=== PATIENT | male | born 1960 | race African-American/Black ===

== ENCOUNTER 2018-02-04 07:36 | Outpatient (CLI) | payer OTHER | END 2018-02-04 07:37 | disposition home or self-care (01) | LOC: BICMRI 07:36 | PROVIDERS: ATTEND Family Medicine | DX: M23.303 Other meniscus derangements, unspecified medial meniscus, right knee (principal); M23.241 Derangement of anterior horn of lateral meniscus due to old tear or injury, right knee; M25.461 Effusion, right knee; M24.661 Ankylosis, right knee ==

== ENCOUNTER 2020-10-03 07:52 | Outpatient (CLI) | payer OTHER ==
--- NOTE | 2020-10-03 08:07 | RAD ---
EXAM: CHEST TWO VIEWS 10/03/2020 8:05 AM HISTORY: Dyspnea COMPARISON: None. FINDINGS: Lungs: No acute airspace consolidation. Heart: Normal in size and contour. Pulmonary Vessels: Normal. Costophrenic Angles: Clear. Pneumothorax: None. Osseous Structures: Intact. Additional Findings: None. IMPRESSION: No significant acute intrathoracic disease.
== END 2020-10-03 07:53 | disposition home or self-care (01) ==
LOC: BICRAD 07:52
PROVIDERS: ATTEND Internal Medicine Critical Care Medicine
DX: R06.00 Dyspnea, unspecified (principal)
CPT/HCPCS: 71046

== ENCOUNTER 2021-03-27 18:00 | Outpatient (CLI) | payer BC | END 2021-03-27 18:01 | disposition home or self-care (01) | LOC: SLEEPLAB 18:00 | PROVIDERS: ATTEND Family Medicine | DX: G47.33 Obstructive sleep apnea (adult) (pediatric) (principal); R06.83 Snoring; E11.9 Type 2 diabetes mellitus without complications; G47.00 Insomnia, unspecified; E66.9 Obesity, unspecified; Z68.41 Body mass index [BMI] 40.0-44.9, adult | CPT/HCPCS: 95806 ==

== ENCOUNTER 2023-11-23 08:23 | Outpatient (CLI) | payer BC | END 2023-11-23 08:24 | disposition home or self-care (01) | LOC: BICRAD 08:23 | PROVIDERS: ATTEND Internal Medicine Rheumatology | DX: D86.0 Sarcoidosis of lung (principal); R06.02 Shortness of breath | CPT/HCPCS: 71046 ==

== ENCOUNTER 2024-09-04 07:56 | Outpatient (CLI) | payer BC | END 2024-09-04 07:57 | disposition home or self-care (01) | LOC: BICRAD 07:56 | PROVIDERS: ATTEND Internal Medicine Rheumatology | DX: M25.541 Pain in joints of right hand (principal); M25.542 Pain in joints of left hand; D86.9 Sarcoidosis, unspecified; M25.861 Other specified joint disorders, right knee ==

== ENCOUNTER 2025-08-31 08:04 | Day surgery (SDC) | payer BC ==
[2025-08-27 13:46] VITALS: BMI 39.4
[2025-08-31] MEDS ORDERED: CEFAZOLIN 2 GM VIAL ONE (09:05)
[2025-08-31] MEDS ORDERED: fentaNYL PF 100 MCG/2 ML SYRINGE ONE (11:42)
[2025-08-31] MEDS ORDERED: PROPOFOL 200 MG/20 ML VIAL ONE (11:44)
[2025-08-31] MEDS ORDERED: Ketorolac Tromethamine 30 MG (1 mL) VIAL ONE (11:53)
[2025-08-31] MEDS ORDERED: Ondansetron PF 4 MG/2 ML Vial ONE (11:53)
[2025-08-31] MEDS ORDERED: diphenhydrAMINE 50 MG/ML VIAL ONE (11:53)
[2025-08-31] MEDS ORDERED: Bacitracin Zinc Ointment 30 gm TUBE ONE (12:44)
== END 2025-08-31 15:30 | disposition home or self-care (01) ==
LOC: SDC 08:04
PROVIDERS: ATTEND Orthopaedic Surgery Hand Surgery
PROC: 01N50ZZ Release Median Nerve, Open Approach (ICD-10-PCS; principal; 2025-08-31)
DX: G56.01 Carpal tunnel syndrome, right upper limb (principal); E11.9 Type 2 diabetes mellitus without complications; I10 Essential (primary) hypertension; Z79.4 Long term (current) use of insulin; Z79.899 Other long term (current) drug therapy
CPT/HCPCS: 36416; A6223; J0665; J1200; J1885; J2405; J2704